=== PATIENT | male | born 1960 | race Caucasian/White ===

== ENCOUNTER 2019-06-05 05:30 | Observation (INO) | payer OTHER ==
[2019-06-03 16:16] LABS: BASOPHILS % 0.5 % (0.0-1.0); EOSINOPHILS # (AUTO) 0.4 (0.0-0.4); EOSINOPHILS % 4.1 % (0.0-6.0); HEMATOCRIT 42.8 % (38.2-49.6); HEMOGLOBIN 15.1 g/dL (14.0-18.0); LYMPHOCYTES # (AUTO) 1.9 (1.0-3.2); LYMPHOCYTES % 22.2 % (18.0-39.1); MEAN CORPUSCULAR HGB CONC 35.3 g/dL (31-35); MEAN CORPUSCULAR VOLUME 90.7 fL (81-99); MONOCYTES # (AUTO) 0.8 (0.2-0.8); MONOCYTES % 9.4 % (4.4-11.3); NEUTROPHILS # (AUTO) 5.4 (2.1-6.9); NEUTROPHILS % 63.4 % (38.7-80.0); PLATELET COUNT 278 x10e3/uL (140-360); RED BLOOD COUNT 4.72 x10e6/uL (4.3-5.7); RED CELL DISTRIBUTION WIDTH 12.4 % (11.7-14.4)
--- NOTE | 2019-06-03 16:22 | Diagnostic Imaging Report ---
EXAMINATION: CHEST 2 VIEWS INDICATION: Pre-operative COMPARISON: None FINDINGS: LINES/TUBES:None LUNGS:The lungs are well-inflated. No focal consolidation or pulmonary edema. PLEURA:No pleural effusion or pneumothorax. MEDIASTINUM:The cardiomediastinal silhouette appears normal in size and shape. BONES/SOFT TISSUES:No acute osseous injury. Mild degenerative changes of the visualized spine. ABDOMEN:No free air under the diaphragm. IMPRESSION: No focal pneumonia or pulmonary edema. Signed by: Mario Alberto Antonio MD on 06/03/2019 4:19 PM
[2019-06-03 16:28] LABS: INR 0.88; PROTHROMBIN TIME 12.4 seconds (11.9-14.5)
[2019-06-03 16:29] LABS: PARTIAL THROMBOPLASTIN TIME 30.9 seconds (23.8-35.5)
[2019-06-03 16:35] LABS: ANION GAP 10.9 mmol/L (8-16); BLOOD UREA NITROGEN 12 mg/dL (7-26); BUN/CREATININE RATIO 14 (6-25); CALCIUM 9.9 mg/dL (8.4-10.2); CARBON DIOXIDE 27 mmol/L (22-29); CHLORIDE 97 mmol/L (98-107); CREATININE, SERUM 0.87 mg/dL (0.72-1.25); EST GLOMERULAR FILTRATION RATE > 60 ML/MIN (60-); GLUCOSE 101 mg/dL (74-118); POTASSIUM 3.9 mmol/L (3.5-5.1); SODIUM 131 mmol/L (136-145)
[~2019-06-05] VITALS: Ht 188 cm; Wt 90.3 kg
[~2019-06-05 05:30] MED LIST: BAYER BACK & B1 EACH PO; DIOVAN160 MG PO; IBUPROFEN600 MG PO; MELOXICAM7.5 MG PO; NORCO 7.5-3251 EACH PO; OMEPRAZOLE40 MG PO
--- OUTSIDE RECORDS SUMMARY | 2019-06-05 05:38 | XMS REPORT ---
Author Author [facility] Address Unknown Phone Unavailable Care Team Providers Care Green Meat Packer Name Role Phone LOUISE COLEMAN Unavailable Unavailable Problems This patient has no known problems. Allergies, Adverse Reactions, Alerts This patient has no known allergies or adverse reactions. Medications This patient has no known medications. Results Test Description Test Time Test Comments Text Results Atomic Results Result Comments CHEST 2 VIEWS 2019-06-03 16:18:00 [place] [address] Patient Name: QUANG CANDELARIO MR #: [id number] : 1960 Age/Sex: 58/M Req #: [id number] [facility] Physician: Ordered by: LOUISE COLEMAN MD Report #: [id number] Location: OR Room/Bed: Procedure: [id number] DX/CHEST 2 VIEWS Exam Date: Exam Time: REPORT STATUS: Signed EXAMINATION: CHEST 2 VIEWS INDICATION: Pre-operative COMPARISON: None FINDINGS: LINES/TUBES:None LUNGS:The lungs are well- inflated. No focal consolidation or pulmonary edema. PLEURA:No pleural effusion or pneumothorax. MEDIASTINUM:The cardiomediastinal silhouette appears normal in size and shape. BONES/SOFT TISSUES:No acute osseous injury. Mild degenerative changes of the visualized spine. ABDOMEN:No free air under the diaphragm. IMPRESSION: No focal pneumonia or pulmonary edema. Signed by: Siobhan Garcia MD on 06/03/2019 4:19 PM Dictated By: SIOBHAN GARCIA MD 18 Transcribed By: FLIP on 06/03/191618 COPY TO: LOUISE COLEMAN MD CHEST 2 VIEWS [place] [address] Patient Name: QUANG CANDELARIO MR #: [id number] : 1960 Age/Sex: 56/M Req #: [id number] Adm Physician: Ordered by: LOUISE COLEMAN MD Report #: [id number] Location: OR Room/Bed: Procedure: [id number] DX/CHEST 2 VIEWS Exam Date: 06/06/17 Exam Time: 1650 REPORT STATUS: Signed PROCEDURE: Frontal and lateral views of the chest. COMPARISON: None. INDICATIONS: PRE-OP C-SPINE FINDINGS: Lines/tubes: None. Lungs: The lungs are well inflated and clear. There is no evidence of pneumonia or pulmonary edema. Pleura: There is no pleural effusion or pneumothorax. Heart and mediastinum: The heart and the mediastinum are normal. Bones: No acute bony abnormality. IMPRESSION: 1. No acute cardiopulmonary disease. Dictated by: Maurice Scott M.D. on 06/06/2017 at 17:22 Electronically approved by: Maurice Scott M.D. on 06/06/2017 at 17:22 Dictated By: MAURICE SCOTT MD 172 Transcribed By: CLYDE on 06/06/17 172 COPY TO: LOUISE COLEMAN MD
[2019-06-05] MEDS ORDERED: CEFAZOLIN SOD 1 GM/NS 50ML 100 ML IV ONE (06:13)
[2019-06-05] MEDS ORDERED: BUPIVACAINE 0.5%/EPI 30 ML SDV INJ ONE (06:27)
[2019-06-05] MEDS ORDERED: THROMBIN FOR SOLN 5,000 UNIT VIAL ONE (06:27)
[2019-06-05] MEDS ORDERED: BACITRACIN 50,000 UNIT VIAL ONE (06:27)
--- NOTE | 2019-06-05 07:15 | NUR ---
SPIRITUAL CARE - Pre-Surgery Assessment: Pt in bed. Pt's at bedside. Pt reported supportive attention from family and friends. Intervention: I provided pastoral presence, hospitality, sympathetic listening, and prayer. I acquainted pt with availability of patient service rep while hospitalized. Outcome: Pt expressed appreciation for visit. No need for follow up indicated at this time. VINAYAK SPAULDING Facilities Project Manager Spiritual Care Department O: [phone] Pager: [phone] ([phone] number calling from)
[2019-06-05] MEDS ORDERED: IBUPROFEN 800MG/ 250ML 250 ML IV ONE (07:18)
[2019-06-05] MEDS ORDERED: LIDOCAINE HCL (LTA) 4 ML SOLN ONE (07:18)
[2019-06-05] MEDS ORDERED: ACETAMINOPHEN 1000 MG/100 ML 100 ML IV ONE (07:18)
--- NOTE | 2019-06-05 08:54 | Diagnostic Imaging Report ---
EXAMINATION: SPINE 1 VW LUMBAR INDICATION: Localization COMPARISON: None FINDINGS: Portable crosstable lateral radiograph of the lumbar spine demonstrates localization at the L2 vertebral body. No acute fracture. Anatomic alignment. Multilevel degenerative changes. IMPRESSION: Intraoperative localization at L2 as above. Signed by: Mario Alberto Antonio MD on 06/05/2019 8:51 AM
--- NOTE | 2019-06-05 08:55 | Diagnostic Imaging Report ---
EXAMINATION: SPINE 1 VW LUMBAR INDICATION: Localization COMPARISON: None FINDINGS: Portable crosstable lateral radiograph of the lumbar spine demonstrates localization at the level of L2-3. No acute fracture. Anatomic alignment. Multilevel degenerative changes. IMPRESSION: Intraoperative localization at L2-3. Signed by: Mario Alberto Antonio MD on 06/05/2019 8:51 AM
[2019-06-05] MEDS: LACTATED RINGER'S 1,000 ML IV SCH ×2 (09:02→20:39)
[2019-06-05] MEDS ORDERED: HYDROMORPHONE 2MG/ML 2 MG/ML ML ONE (09:14)
[2019-06-05] MEDS ORDERED: CEPACOL SORE THROAT LOZENGES PO PRN (09:15)
[2019-06-05] MEDS ORDERED: MAGNESIUM/ALUMINUM/SIMETHICONE 30 ML UDC PO PRN (09:15)
[2019-06-05] MEDS ORDERED: ONDANSETRON HCL INJ 2MG/ML 2ML 2 MG/ML VIAL IV PRN (09:15)
[2019-06-05] MEDS ORDERED: HYDROMORPHONE 2MG/ML 2 MG/ML ML IV PRN (09:15)
[2019-06-05] MEDS ORDERED: ZOLPIDEM TARTRATE 5 MG TAB PO PRN (09:15)
[2019-06-05] MEDS ORDERED: PROMETHAZINE HCL (IM) 25 MG/ML VIAL IM PRN (09:15)
[2019-06-05] MEDS ORDERED: MORPHINE SULFATE INJ 4 MG/ML INJ 1ML IM PRN (09:15)
[2019-06-05] MEDS ORDERED: PANTOPRAZOLE SOD 40 MG TABEC PO SCH (09:15)
[2019-06-05] MEDS ORDERED: ACETAMINOPHEN 325 MG TAB PO PRN (09:15)
[2019-06-05] MEDS ORDERED: CARISOPRODOL 350 MG TAB ONE (09:37)
--- NOTE | 2019-06-05 12:20 | NUR ---
Patient admitted to unit from PACU. Patient is post op laminectomy. Dressing to back noted to have some blood tinged drainage. Marked in PACU and will monitor. Lung cervantes clear to auscultation. Bowel sounds present x4. No edema noted. Patient has voided at this time. NO c/o pain at this time. Left hand IV in place.
[2019-06-05 12:34] VITALS: BP 190/99
[2019-06-05 12:55] VITALS: BP 158/80
--- NOTE | 2019-06-05 14:00 | NUR ---
Laminectomy dressing noted to be saturated. Removed dressing and replaced. Will continue to monitor.
[2019-06-05] MEDS: OXYCODONE/ACETAMINOPHEN 5-325 1 EACH TABLET PO PRN ×3 (14:54→23:22)
[2019-06-05] MEDS: CARISOPRODOL 350 MG TAB PO PRN ×3 (14:54→23:23)
--- NOTE | 2019-06-05 15:54 | Operative Report ---
DATE OF PROCEDURE: 06/05/2019 SURGEON: Dylan Franklin MD PREOPERATIVE DIAGNOSIS: Severe recurrent L2-L3 spinal stenosis with neurogenic claudication, M48.062. POSTOPERATIVE DIAGNOSIS: Severe recurrent L2-L3 spinal stenosis with neurogenic claudication, M48.062. PROCEDURES: 1. Redo L2 bilateral decompressive laminectomy and L2-L3 bilateral medial facetectomies, 78198. 2. Redo L3 bilateral partial decompressive laminectomy, 97188. ANESTHESIA: General. INDICATIONS: The patient is a 58-year-old man, who has previously had a right L2-L3 laminotomy and medial facetectomy for resection of synovial cyst with good results. He now presents with neurogenic claudication several years later. The MRI reveals severe recurrent spinal stenosis at L2-L3, at this time primarily due to facet and ligamentous hypertrophy just above the level of the previous laminotomy at L2-L3. The patient was taken to the operating room for redo bilateral decompressive laminectomy. PROCEDURE IN DETAIL: After induction of general anesthesia, the patient was placed on the operating table in prone position over Arnold frame. Lumbar region was prepped and draped in sterile fashion. A preoperative x-ray was obtained. A small midline incision was created. Lumbar fascia was opened along the midline and the spinous processes of L2 and L3, and the lamina of L2 and L3, and the medial aspects of the L2-L3 facet joints were exposed bilaterally. Second x-ray confirmed correct localization. The region of the previous right-sided laminotomy was defined with a curette. The spinous process of L2 and the upper part of the L3 spinous process were resected. A high-speed drill equipped with a evita bur was used to drill the inferior 2/3 of lamina of L2 and the superior 1/3 of the lamina of L3, initially starting on the left side and extending then to the margin of the laminotomy on the right side. The ligamentum flavum was first elevated off the dura on the left side and resected. The left L3 lateral recess was fully exposed and decompressed. Then, a meticulous microdissection of the epidural scar was carried out from left to right, and as the scar was elevated. The dura was exposed and the hypertrophic ligamentum flavum in the right L3 lateral recess was resected until excellent decompression had been achieved of the dural sac and the L3 nerve roots bilaterally. The nerve roots on either side were then retracted medially and underlying disk was examined. There was a mild disk bulge, but no true disk herniation. The diskectomy was not performed. The wound was copiously irrigated with bacitracin solution. Meticulous hemostasis was secured. The retractor was removed. The lumbar fascia was closed with 0 Vicryl sutures. Subcutaneous layer was closed with 2-0 Vicryl sutures. The skin was closed with 3-0 Monocryl sutures in subcuticular fashion. Steri-Strips and dressing were applied. The patient was awakened, extubated, and taken to postanesthesia care unit in stable condition. No intraoperative complications were encountered. Estimated blood loss was 10 mL. Dylan Franklin MD PP/JOSIE /[id number]
[2019-06-05 16:13] VITALS: BP 138/76
[2019-06-05] MEDS: CEFAZOLIN SOD 1 GM/NS 50ML 50 ML IV SCH ×2 (16:28→23:23)
--- NOTE | 2019-06-05 18:30 | NUR ---
Spoke with Dr. Franklin regarding back incision draining and having to change the dressing multiple times. He said he was aware of that due to not using glenys and that we just need to continue to change the dressing and it will stop in a day. Informed patient and he is okay with the outcome at this time.
[2019-06-05] MEDS ORDERED: LIDOCAINE HCL 2% LOCAL INJ 5 ML SDV VIAL INJ ONE (18:48)
[2019-06-05] MEDS ORDERED: SEVOFLURANE INHAL SOLN 250 ML PEN BTL ONE (18:48)
[2019-06-05] MEDS ORDERED: ROCURONIUM BROMIDE 10 MG/ML 5ML VIAL ONE (18:48)
[2019-06-05] MEDS ORDERED: PROPOFOL IV EMULSION 10 MG/ML 20 ML VIAL ONE (18:48)
[2019-06-05] MEDS ORDERED: ONDANSETRON HCL INJ 2MG/ML 2ML 2 MG/ML VIAL ONE (18:48)
[2019-06-05] MEDS ORDERED: DEXAMETHASONE SOD PHOS INJ 4 MG/ML VIAL ONE (18:48)
[2019-06-05] MEDS ORDERED: FENTANYL CITRATE/PF 100MCG/2 ML INJ ONE (19:09)
[2019-06-05] MEDS ORDERED: MIDAZOLAM HCL 2 MG/2 ML VIAL ONE (19:09)
[2019-06-05 19:44] VITALS: BP 157/86
[2019-06-05] MEDS ORDERED: VALSARTAN 160 MG TAB PO SCH (21:00)
[2019-06-05 21:09] VITALS: BP 157/86
[2019-06-05 23:45] VITALS: BP 142/75
[2019-06-06] MEDS: LACTATED RINGER'S 1,000 ML IV SCH (01:42)
[2019-06-06 04:00] VITALS: BP 148/76
--- NOTE | 2019-06-06 07:46 | NUR ---
Patient a/ox3, pleasant and no distress at this time, rounds completed, call light within reach, bed in low locked position, will monitor.
[2019-06-06] MEDS: CEFAZOLIN SOD 1 GM/NS 50ML 50 ML IV SCH (08:10)
[2019-06-06 09:08] VITALS: BP 150/87
[2019-06-06 09:15] VITALS: BP 150/87
[2019-06-06] MEDS ORDERED: NORCO 7.5-3251 EACH PO (09:54)
[2019-06-06] MEDS: CARISOPRODOL 350 MG TAB PO PRN (10:49)
[2019-06-06] MEDS: OXYCODONE/ACETAMINOPHEN 5-325 1 EACH TABLET PO PRN (10:49)
--- NOTE | 2019-06-06 10:49 | NUR ---
Patient a/ox3, medicated for pain at this time, dressing to back removed, old crusty drainage, no active bleeding noted. Provided with discharge instructions and documentation, prescriptions to patient. iV line removed and cath tip in place, dressing applied. Patient discharged at this time and to f/u with surgeon, contacts provided.
== END 2019-06-06 11:00 | disposition home or self-care (01) ==
LOC: OR 05:30 → PACU V 09:03 → MED/SURG 12:20
PROVIDERS: ADMIT Neurological Surgery; ATTEND Neurological Surgery
DX: M48.062 Spinal stenosis, lumbar region with neurogenic claudication (principal); Z01.810 Encounter for preprocedural cardiovascular examination; Z01.812 Encounter for preprocedural laboratory examination; Z01.811 Encounter for preprocedural respiratory examination; Z88.1 Allergy status to other antibiotic agents; Z88.8 Allergy status to other drugs, medicaments and biological substances; I10 Essential (primary) hypertension; M19.90 Unspecified osteoarthritis, unspecified site; F17.210 Nicotine dependence, cigarettes, uncomplicated
CPT/HCPCS: 36415; 71046; 72020; 80048; 85025; 85610; 85730; 86850; 86900; 88304; 89060; 93005; G0378; J0690; J1100; J2001; J2250; J2405; J3010; J7121

== ENCOUNTER → 2019-08-06 | Outpatient (CLI) | payer OTHER ==
--- NOTE | 2019-08-06 14:13 | Diagnostic Imaging Report ---
Right upper quadrant abdominal ultrasound, 08/06/2019. History: Right upper quadrant pain. Comparison: None available. Discussion: Transverse and longitudinal images of the right upper quadrant of the abdomen were obtained demonstrating a liver of normal size and echogenicity measuring 13.6 cm in length. There is no evidence of a focal hepatic mass. The portal vein is patent with hepatopetal flow and is within normal limits measuring 10 mm in diameter. The biliary tree is within normal limits with the common bile duct measuring 3 mm in diameter. The gallbladder is normal without evidence of shadowing stones, wall thickening, or pericholecystic fluid. The sonographic Nina's sign was negative. The right kidney is normal in size and echogenicity without evidence of hydronephrosis, stones, or mass and measures 10.7 cm in length. The pancreas and aorta were obscured by overlying bowel gas. There is no evidence of free fluid. IMPRESSION: Negative exam. No evidence of cholelithiasis. Signed by: Edwardo Franco on 08/06/2019 2:10 PM
== END ==
LOC: US 12:31
PROVIDERS: ATTEND Family Medicine
DX: R10.11 Right upper quadrant pain (principal)
CPT/HCPCS: 76705

== ENCOUNTER 2020-10-28 07:45 | Emergency (ER) | payer OTHER ==
[~2020-10-28] VITALS: Ht 188 cm; Wt 90.3 kg
[2020-10-28 08:03] LABS: BASOPHILS # (AUTO) 0.1 (0.0-0.1); BASOPHILS % 0.7 % (0.0-1.0); EOSINOPHILS # (AUTO) 0.7 (0.0-0.4); EOSINOPHILS % 8.8 % (0.0-6.0); HEMATOCRIT 45.1 % (38.2-49.6); HEMOGLOBIN 15.9 g/dL (14.0-18.0); LYMPHOCYTES # (AUTO) 1.6 (1.0-3.2); LYMPHOCYTES % 19.9 % (18.0-39.1); MEAN CORPUSCULAR HEMOGLOBIN 31.7 pg (28-32); MEAN CORPUSCULAR HGB CONC 35.3 g/dL (31-35); MONOCYTES # (AUTO) 0.8 (0.2-0.8); MONOCYTES % 9.8 % (4.4-11.3); NEUTROPHILS % 60.4 % (38.7-80.0); PLATELET COUNT 289 x10e3/uL (140-360); RED BLOOD COUNT 5.01 x10e6/uL (4.3-5.7); RED CELL DISTRIBUTION WIDTH 12.6 % (11.7-14.4)
[2020-10-28 08:27] LABS: ALANINE AMINOTRANSFERASE 19 IU/L (0-55); ALBUMIN 4.4 g/dL (3.5-5.0); ALBUMIN/GLOBULIN RATIO 1.6 (0.8-2.0); ALKALINE PHOSPHATASE 84 IU/L (40-150); ANION GAP 15.1 mmol/L (8-16); BLOOD UREA NITROGEN 12 mg/dL (7-26); BUN/CREATININE RATIO 13 (6-25); CALCIUM 9.3 mg/dL (8.4-10.2); CARBON DIOXIDE 25 mmol/L (22-29); CHLORIDE 96 mmol/L (98-107); CREATINE KINASE 148 IU/L (30-200); CREATININE, SERUM 0.93 mg/dL (0.72-1.25); EST GLOMERULAR FILTRATION RATE > 60 ML/MIN (60-); GLUCOSE 108 mg/dL (74-118); POTASSIUM 4.1 mmol/L (3.5-5.1); SODIUM 132 mmol/L (136-145)
[2020-10-28 09:59] VITALS: BP 150/98
== END 2020-10-28 10:01 | disposition home or self-care (01) ==
LOC: ER 08:17
DX: R07.9 Chest pain, unspecified (principal); I10 Essential (primary) hypertension; F17.210 Nicotine dependence, cigarettes, uncomplicated
CPT/HCPCS: 36415; 71045; 80053; 80320; 82550; 82553; 84484; 85025; 93005; 99284

== ENCOUNTER → 2020-12-02 | Outpatient (CLI) | payer OTHER | LOC: CT 13:46 | PROVIDERS: ATTEND Internal Medicine Cardiovascular Disease | DX: Z12.2 Encounter for screening for malignant neoplasm of respiratory organs (principal) | CPT/HCPCS: 71250 ==

== ENCOUNTER → 2021-06-17 | Outpatient (CLI) | payer OTHER | LOC: DX 09:54 | PROVIDERS: ATTEND Family Medicine | DX: S42.024A Nondisplaced fracture of shaft of right clavicle, initial encounter for closed fracture (principal) | CPT/HCPCS: 77080 ==

== ENCOUNTER → 2023-01-12 | Day surgery (SDC) | payer OTHER ==
[~2023-01-12] MED LIST changes: +AMLODIPINE BESYL5 MG PO; +FENTANYL CITRATE/PF 100MCG/2 ML INJ ONE; +GABAPENTIN100 MG PO; +LACTATED RINGER'S 1,000 ML ONE; +LIDOCAINE HCL 2% LOCAL INJ 5 ML SDV VIAL INJ ONE; +MIDAZOLAM HCL 2 MG/2 ML VIAL ONE; +PROPOFOL IV EMULSION 10 MG/ML 20 ML VIAL ONE
[2023-01-12 11:38] VITALS: TEMP 98.3
[2023-01-12 12:05] VITALS: BP 149/79; PULSE 60; RESP 16; O2SAT 99
== END | disposition home or self-care (01) ==
LOC: OR 08:40
PROVIDERS: ATTEND Internal Medicine Gastroenterology
DX: R10.32 Left lower quadrant pain (principal); D12.2 Benign neoplasm of ascending colon; K62.1 Rectal polyp; R19.5 Other fecal abnormalities; K57.30 Diverticulosis of large intestine without perforation or abscess without bleeding; K64.8 Other hemorrhoids; Z71.3 Dietary counseling and surveillance; I10 Essential (primary) hypertension; Z71.89 Other specified counseling; F17.210 Nicotine dependence, cigarettes, uncomplicated; Z71.6 Tobacco abuse counseling; Z01.810 Encounter for preprocedural cardiovascular examination; Z79.899 Other long term (current) drug therapy; Z68.26 Body mass index [BMI] 26.0-26.9, adult
CPT/HCPCS: 45378; 45380; 45385; 93005; J2001; J2250